=== PATIENT | male | born 1950 | race African-American/Black ===

== ENCOUNTER 2024-05-04 15:29 | Outpatient (NON) | payer OTHER, SELFPAY ==
[2024-05-04 16:09] LABS: Hematocrit 28.4 % (37.0-46.0); Hemoglobin 8.3 g/dL (12.4-15.3); Mean Corpuscular HGB Conc 29.2 g/dL (32-36); Mean Corpuscular Hemoglobin 24.3 pg (27.0-31.0); Mean Platelet Volume 9.5 fl (8.7-11.0); Platelet Count Result 193 K/mm3 (150-420); Red Blood Count 3.42 M/mm3 (4.70-6.10); Red Cell Distribution Width 18.2 % (11.6-14.4); White Blood Count 5.7 K/mm3 (4.8-10.8)
[2024-05-04 21:16] LABS: Alanine Aminotransferase 21 U/L (16-63); Albumin Level 3.2 g/dL (3.4-5.0); Alkaline Phosphatase 59 U/L (46-116); Anion Gap 9 mmol/L (4-12); Aspartate Amino Transferase 12 U/L (15-37); Bilirubin,Total 0.3 mg/dL (0.00-1.00); Blood Urea Nitrogen 10 mg/dL (7-18); Calcium 9.2 mg/dL (8.5-10.1); Carbon Dioxide 31 mmol/L (21-32); Chloride 105 mmol/L (98-108); Estimated Glomerular Filt Rate 55; Glucose 125 mg/dL (70-99); Osmolality Calculated 300 mOsm/kg (285-295); Potassium 3.7 mmol/L (3.5-5.1); Sodium 145 mmol/L (136-145); Total Protein 6.4 g/dL (6.4-8.2)
== END 2024-05-04 15:30 | disposition home or self-care (01) ==
LOC: CHSLAB 15:52
DX: I13.0 Hypertensive heart and chronic kidney disease with heart failure and stage 1 through stage 4 chronic kidney disease, or unspecified chronic kidney disease (principal); N18.30 Chronic kidney disease, stage 3 unspecified; D63.1 Anemia in chronic kidney disease; T82.7XXA Infection and inflammatory reaction due to other cardiac and vascular devices, implants and grafts, initial encounter; M06.9 Rheumatoid arthritis, unspecified; J96.01 Acute respiratory failure with hypoxia; I73.9 Peripheral vascular disease, unspecified
CPT/HCPCS: 36415; 80053; 85027